=== PATIENT | male | born 1980 | race Asian ===

== ENCOUNTER 2019-09-03 01:22 | Emergency (ER) | payer OTHER ==
[~2019-09-03] VITALS: Ht 172.7 cm; Wt 70.3 kg
[2019-09-03 01:35] VITALS: BP 150/96
--- NOTE | 2019-09-03 01:35 | NUR ---
ED Nurse Note: Patient walked in to ED c/ increased epigastric pain x12 hrs ago. Pt also reports sorethroat x 2 days. Denies nausea, vomiting and diarrhea. No fever, no recent travel. VSS.
--- NOTE | 2019-09-03 01:51 | Emergency Room Report ---
History of Present Illness General Chief Complaint: Upper Respiratory Illness Source: Patient Present Illness HPI Patient is a 38-year-old male who presents for increased epigastric pain and abdominal distention. He reports having onset of symptoms 2 days ago. Intermittent pain. Reports having some associated sore throat as well as brief nonproductive cough. Denies any recent sick contacts. He denies any vomiting or diarrhea. Denies any change in diet. Denies any prior abdominal surgery. He had not been taking any antipyretics at this time. Had taken acetaminophen 1 day ago.Does not drink alcohol regularly. Patient denies any smoking. Allergies: Coded Allergies: No Known Allergies (Unverified , 09/03/19) COVID-19 Screening Contact w/high risk pt: No Recent Travel to affected area: No Experienced COVID-19 symptoms?: Yes COVID-19 symptoms experienced: Cough Patient History Past Medical History: see triage record Reviewed Nursing Documentation: PMH: Agreed - i; PSxH: Agreed - i Nursing Documentation-PMH Past Medical History: No Stated History Review of Systems All Other Systems: negative except mentioned in HPI Physical Exam Vital Signs Date Time Temp Pulse Resp B/P (MAP) Pulse Ox O2 Delivery O2 Flow Rate FiO2 09/03/19 01:26 98.4 92 18 150/96 (114) 100 Room Air General Appearance: well appearing, no apparent distress, alert, GCS 15 Head: normocephalic, atraumatic ENT: hearing grossly normal, normal voice Neck: full range of motion, supple Respiratory: lungs clear, normal breath sounds, no respiratory distress, speaking full sentences Cardiovascular #1: normal inspection, no edema Gastrointestinal: normal inspection, soft Musculoskeletal: normal inspection Neurologic: alert, motor strength/tone normal, utility inspector III-XII nml as tested, oriented x3, normal gait Psychiatric: normal inspection, mood/affect normal Skin: no rash Medical Decision Making Diagnostic Impression: Primary Impression: Nonspecific abdominal pain ER Course Patient presented for abdominal pain. Differential diagnoses included ischemic bowel, appendicitis, perforated viscus, abdominal aortic aneurysm, inferior myocardial infarction, viral gastroenteritis among others.patient is an overall benign exam and is nontender. Bedside ultrasound showed no evidence of obstructing gallstone. Gallbladder is nontender. Patient was given a GI cocktail with improvement. Patient was advised that he may have a viral infection which potentially could be coronavirus. He was advised self quarantine. Patient appears to be stable for close outpatient follow up. He was given medications for symptomatic treatment. He was advised to return if he had worsening of pain or increased shortness of breath or other concerns. Patient was advised to return if shortness of breath or if any worsening . This medical record is generated with [employer] micro paleontologist software. There may be some micro paleontologist discrepancies related to use of this software Last Vital Signs Date Time Temp Pulse Resp B/P (MAP) Pulse Ox O2 Delivery O2 Flow Rate FiO2 09/03/19 01:35 92 18 Room Air 09/03/19 01:35 98.4 150/96 100 Status: improved Disposition: HOME, SELF-CARE Condition: Stable Scripts Omeprazole (OMEPRAZOLE) 20 Mg Capsule.dr 20 MG ORAL DAILY, #30 CAP Prov: Abilio Silva MD 09/03/19 Dicyclomine Hcl* (DICYCLOMINE HCL*) 10 Mg Capsule 10 MG ORAL QID, #20 CAP Prov: Abilio Silva MD 09/03/19 Referrals: NOT CHOSEN IPA/,REFERRING (PCP) Abilio Silva MD Sep 03, 2019 01:51
[2019-09-03] MEDS ORDERED: OMEPRAZOLE20 M2 ORAL (01:53)
[2019-09-03] MEDS ORDERED: DICYCLOMINE HCL10 MG ORAL (01:53)
[2019-09-03] MEDS ORDERED: Mylanta II UD 30ml ORAL ONE (02:00)
[2019-09-03] MEDS ORDERED: Dicyclomine HCl 10mg/5ml oral soln ORAL ONE (02:00)
[2019-09-03] MEDS ORDERED: Lidocaine 2% Visc 15ml soln ORAL ONE (02:00)
[2019-09-03 02:20] VITALS: BP 145/82
--- NOTE | 2019-09-03 02:20 | NUR ---
ED Nurse Note: Pt cleared by ERMD for discharge. DC instructions/prescription was given and explained to pt and verbalized understanding of teachings. All medical deviecs such as ID band removed. Pt is AAO x4, ambulatory and left with all personal belongings.
== END 2019-09-03 02:20 | disposition home or self-care (01) ==
LOC: EMR 01:37
DX: R10.13 Epigastric pain (principal); R05 Cough
CPT/HCPCS: 99283